=== PATIENT | female | born 1985 | race Caucasian/White ===

== ENCOUNTER 2018-03-02 12:35 | Emergency (ER) | payer MEDICARE ==
[~2018-03-02] VITALS: Ht 162.6 cm; Wt 96.2 kg
--- OUTSIDE RECORDS SUMMARY | 2018-04-16 03:13 | XMS REPORT | Clinical Summary ---
Author Author [facility] Organization [facility] Address Unknown Phone Unavailable Care Team Providers Care Rubber Process Hand Name Role Phone Asked, Pcp PCP Unavailable Allergies Active Allergy Reactions Severity Noted Date Comments Promethazine Other (See Comments) 02/25/2017 Spasms to arms and legs Current Medications Prescription Sig. Disp. Refills Start End Date Status Date clindamycin (CLEOCIN HCL) Take 1 capsule (300 mg 40 capsule 0 03/07/20 300 MG capsule total) by mouth 4 (four) 17 17 times a day for 10 days. oseltamivir (TAMIFLU) 75 Take 1 capsule (75 mg 10 capsule 0 07/30/19 08/04/19 MG capsule total) by mouth 2 (two) 18 18 times a day for 5 days. azithromycin (ZITHROMAX) Take first 2 tablets 6 tablet 0 07/30/19 250 MG tablet together, then 1 every 18 18 day until finished. predniSONE (DELTASONE) 20 Take 1 tablet (20 mg 10 tablet 0 07/30/19 08/04/19 mg tablet total) by mouth 2 (two) 18 18 times a day for 5 days. albuterol (ACCUNEB) 1.25 Take 3 mL (1.25 mg total) 60 vial 0 07/30/19 08/29/19 mg/3 mL nebulizer by nebulization every 6 18 18 solution (six) hours as needed for wheezing for up to 30 days. benzonatate (TESSALON) Take 1 capsule (100 mg 21 capsule 0 08/05/19 09/04/19 100 MG capsule total) by mouth every 8 18 18 (eight) hours for 30 days. Active Problems Not on file Encounters Date Type Specialty Care Team Description 08/05/2017 Emergency Emergency Medicine Nigel Martins Cough ( Primary Dx); Rocio Rae MD Wheezing 07/30/2017 Emergency Emergency Medicine [facility], Bryce Woodard MD Influenza B (Primary Dx); Acute bronchitis with bronchospasm; Acute pharyngitis, unspecified etiology after 03/01/2017 Social History Tobacco Use Types Packs/Day Years Used Date Never Smoker Smokeless Tobacco: Never Used Alcohol Use Drinks/Week oz/Week Comments No Sex Assigned at Date Recorded Not on file Last Filed Vital Signs Vital Sign Reading Time Taken Blood Pressure 126/74 08/05/2017 11:07 PM CLIENT FINANCE ANALYST Pulse 118 08/05/2017 11:07 PM CLIENT FINANCE ANALYST Temperature 37.1 C (98.8 F) 08/05/2017 11:07 PM CLIENT FINANCE ANALYST Respiratory Rate 20 08/05/2017 11:07 PM CLIENT FINANCE ANALYST Oxygen Saturation 97% 08/05/2017 11:07 PM CLIENT FINANCE ANALYST Inhaled Oxygen - - Concentration Weight 90.7 kg (200 lb) 08/05/2017 8:42 PM CLIENT FINANCE ANALYST Height 162.6 cm (5' 4") 08/05/2017 8:42 PM CLIENT FINANCE ANALYST Body Mass Index 34.33 08/05/2017 8:42 PM CLIENT FINANCE ANALYST Plan of Treatment Health Maintenance Due Date Last Done Comments CERVICAL CANCER SCREENING 02/05/2008 INFLUENZA VACCINE 02/11/2018 Procedures Procedure Name Priority Date/Time Associated Diagnosis Comments XR CHEST 2 VW STAT 08/05/2017 Results for this 9:53 PM CLIENT FINANCE ANALYST procedure are in the results section. HCG QUALITATIVE, URINE Routine 08/05/2017 Results for this SCREEN 9:36 PM CLIENT FINANCE ANALYST procedure are in the results section. XR CHEST 2 VW STAT 07/30/2017 Results for this 1:08 PM CLIENT FINANCE ANALYST procedure are in the results section. STREP SCREEN CULTURE Routine 07/30/2017 Results for this 12:15 PM CLIENT FINANCE ANALYST procedure are in the results section. GROUP A STREP, RAPID Routine 07/30/2017 Results for this ANTIGEN 12:15 PM CLIENT FINANCE ANALYST procedure are in the results section. INFLUENZA ANTIGEN Routine 07/30/2017 Results for this 12:15 PM CLIENT FINANCE ANALYST procedure are in the results section. after 03/01/2017 Results * XR Chest 2 Vw (08/05/2017 9:53 PM) Only the most recent of 2 results within the time period is included. Narrative Performed At EXAMINATION: XR CHEST 2 VW [facility] CLINICAL HISTORY: Cough COMPARISON: Chest x-ray 07/30/2017. IMPRESSION: The lungs are clear. No pleural effusion or pneumothorax. The cardiomediastinal silhouette is normal. No acute osseous abnormalities. [facility]-[id number] Procedure Note Hm Interface, Radiology Results Incoming - 08/05/2017 9:58 PM CLIENT FINANCE ANALYST EXAMINATION: XR CHEST 2 VW CLINICAL HISTORY: Cough COMPARISON: Chest x-ray 07/30/2017. IMPRESSION: The lungs are clear. No pleural effusion or pneumothorax. The cardiomediastinal silhouette is normal. No acute osseous abnormalities. [facility]-[id number] Performing Organization Address City/State/Zipcode Phone Number [facility] [address] [place] [address] * hCG qualitative, urine screen (08/05/2017 9:36 PM) hCG qualitative, urine Negative Negative [place] [facility] Comment: PATHOLOGY AND The manufacturers stated [facility] sensitivity of HcG test for serum is >/=10 mIU/ml and urine is >/=20mIU/ml. Specimen Urine Performing Organization Address [facility] Phone Number [place] [address] PATHOLOGY AND [facility] * Group A strep, rapid antigen (07/30/2017 12:15 PM) Group A strep, rapid Negative for Group A [place] [facility] antigen result Streptococcus antigen. All PATHOLOGY AND negative Group A [facility] Streptococcus antigen screens are confirmed by culture. Comment: Specimen Information Specimen Source: Throat Specimen Site: Not otherwise specified Specimen Throat - Not otherwise specified Performing Organization Address [facility] Phone Number [place] [facility] [place] [phone] PATHOLOGY AND [facility] * Influenza antigen (07/30/2017 12:15 PM) Influenza antigen Positive for Influenza B [place] [facility] antigen. PATHOLOGY AND Negative for Flu A [facility] (A) Comment: Specimen Information Specimen Source: Nares Specimen Site: Right Specimen Nares - Right Performing Organization Address [facility] Phone Number [place] [facility] OF [address] [place], [place] [phone] PATHOLOGY AND [facility] * Strep screen culture (07/30/2017 12:15 PM) Strep screen culture No beta hemolytic Streptococci [facility] DEPARTMENT OF isolate isolated PATHOLOGY AND Comment: GENOMIC MEDICINE Specimen Information Specimen Source: Throat Specimen Site: Not otherwise specified Specimen Throat - Not otherwise specified Performing Organization Address City/State/Zipcode Phone Number [facility] DEPARTMENT OF [address] [place] [phone] PATHOLOGY AND GENOMIC MEDICINE after 03/01/2017
== END 2018-03-02 14:09 | disposition left against medical advice (07) ==
LOC: ER 12:35
DX: F41.9 Anxiety disorder, unspecified (principal)